=== PATIENT | male | born 1945 | race Caucasian/White ===

== ENCOUNTER 2018-01-26 08:47 | Outpatient (CLI) | payer MEDICARE, BC, SELFPAY ==
[2018-01-26 09:21] LABS: Kit/Specimen SENT
== END 2018-01-26 09:07 ==
PROVIDERS: PCP Family Medicine; Visit Provider Radiology Radiation Oncology
DX: C61 Malignant neoplasm of prostate (principal)
CPT/HCPCS: 36415